=== PATIENT | male | born 1995 | race Caucasian/White ===

== ENCOUNTER 2020-10-08 14:43 | Emergency (ER) | payer OTHER | END 2020-10-08 17:48 | disposition home or self-care (01) | LOC: ER1 14:43 | DX: S80.11XA Contusion of right lower leg, initial encounter (principal); S80.211A Abrasion, right knee, initial encounter; V49.40XA Driver injured in collision with unspecified motor vehicles in traffic accident, initial encounter; Y92.410 Unspecified street and highway as the place of occurrence of the external cause | CPT/HCPCS: 73564; 73590; 73610; 73630; 99283 ==